=== PATIENT | female | born 1990 | race Caucasian/White ===

== ENCOUNTER 2024-01-31 01:23 | Emergency (ER) | payer SELFPAY ==
--- NOTE | 2024-01-31 02:43 | EDPHYS ---
Physician Documentation [facility] Name: Elizabeth Duke Age: 33 yrs Sex: Female : 1990 Arrival Date: 01/31/2024 Time: 01:23 Bed 17 Private MD: ED Physician Sonam Chin HPI: 01/30 02:21 This 33 yrs old Female presents to ER via Ambulatory with complaints of Psychosis. sp3 02:21 . sp3 02:22 33-year-old female with history of hepatitis and 1 prior psychosis episode with sp3 subsequent Seroquel use and stoppage several years ago now presents again with family for chief complaint psychosis. Patient is talking to people that are not there, making hand gestures and acting generally abnormal per family (parents). Patient states she takes marijuana but does not have any other drug use. She denies any trauma, headache, neck pain, chest pain, shortness of breath, abdominal pain, vomiting, diarrhea, rash, known sick contacts, travel history or any other signs or symptoms on ROS at this time.. 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 - Infectious Disease History:: Denies. - Social history:: Smoking status: Reported history of juuling and/or vaping. Patient uses methamphetamines. ROS: 02:24 Unable to obtain ROS due to patient being uncooperative, sp3 Exam: 02:24 Constitutional: This is a well developed, well nourished patient who is awake, alert, sp3 and in no acute distress. Head/Face: Normocephalic, atraumatic. Eyes: Pupils equal round and reactive to light, extra-ocular motions intact. Lids and lashes normal. Conjunctiva and sclera are non-icteric and not injected. Cornea within normal limits. Periorbital areas with no swelling, redness, or edema. Neck: Trachea midline, no thyromegaly or masses palpated, and no cervical lymphadenopathy. Supple, full range of motion without nuchal rigidity, or vertebral point tenderness. No Meningismus. Chest/axilla: Normal chest wall appearance and motion. Nontender with no deformity. No lesions are appreciated. Cardiovascular: Regular rate and rhythm with a normal S1 and S2. No gallops, murmurs, or rubs. Normal PMI, no JVD. No pulse deficits. Respiratory: Lungs have equal breath sounds bilaterally, clear to auscultation and percussion. No rales, rhonchi or wheezes noted. No increased work of breathing, no retractions or nasal flaring. Abdomen/GI: Soft, non-tender, with normal bowel sounds. No distension or tympany. No guarding or rebound. No evidence of tenderness throughout. Back: No spinal tenderness. No costovertebral tenderness. Full range of motion. MS/ Extremity: Pulses equal, no cyanosis. Neurovascular intact. Full, normal range of motion. Neuro: Awake and alert, GCS 15, oriented to person, place, time, and situation. Cranial nerves II-XII grossly intact. Motor strength 5/5 in all extremities. Sensory grossly intact. Cerebellar exam normal. Normal gait. 02:24 Psych: Patient appears psychotic and responding to internal stimuli. Very pressured speech.. Vital Signs: 01:46 BP 132 / 77; Pulse 88; Resp 18; Pulse Ox 100% on R/A; Pain 0/10; kj2 01:58 Weight 104.33 kg; Height 5 ft. 3 in. ; kj2 01:58 Body Mass Index 40.74 (104.33 kg, 160.02 cm) kj2 01:46 Pain Scale: Adult kj2 MDM: 01:33 Medical Screening Exam initiated sp3 02:25 Data reviewed: vital signs, nurses notes, lab test result(s). ED course: 33-year-old sp3 female with history of psychosis now acutely psychotic. This could be psychotic break versus external substance-induced on differential diagnosis. Will obtain general labs for toxicology and administer Geodon as it is clearly indicated. [facility] will be consulted as needed.. 02:42 ED course: Patient calm and states she wants to leave. At this point I still believe sp3 she is experiencing psychosis but is not a danger to herself. She denies suicidal ideation, homicidal ideation or any other psychiatric pathology. Her vital signs are normal. Although I recommended antipsychotic medication to her she ultimately refuses. I have urged her as well as her parents to talk to her to try and get her to change her mind. She is persistent on not wanting medication and has walked out of the emergency department.. 01/30 01:45 Order name: EKG; Complete Time: 01:45 sp3 01/30 01:45 Order name: Suicide Screening (Tracey); Complete Time: 04:32 sp3 Administered Medications: 02:35 Not Given (Patient Refused): [id number] mg IM once kj2 Disposition Summary: 01/31/24 02:43 Discharge Ordered Notes: Location: Home sp3 Condition: Stable sp3 Diagnosis - Unspecified psychosis not due to a substance or known physiological condition sp3 Followup: sp3 - With: Private Physician - When: Upon discharge from the Emergency Department - Reason: Continuance of care Discharge Instructions: - Discharge Summary Sheet sp3 - Psychosis sp3 Forms: - Medication Reconciliation Form sp3 - Antibiotic Education sp3 - Prescription Opioid Use sp3 - Patient Portal Instructions sp3 - Leadership Thank You Letter sp3 Signatures: Dispatcher [employer] EDSonam Del Rio MD MD sp3 Kim Comer RN RN kj2 Corrections: (The following items were deleted from the chart) 01:45 01:45 ACETAMINOPHEN+C.LAB.BRZ ordered. EDMS EDMS 01:45 01:45 BASIC METABOLIC PANEL+C.LAB.BRZ ordered. EDMS EDMS 01:45 01:45 CBC+H.LAB.BRZ ordered. EDMS EDMS 01:45 01:45 ETHANOL+C.LAB.BRZ ordered. EDMS EDMS 01:45 01:45 HEPATIC FUNCTION+C.LAB.BRZ ordered. EDMS EDMS 01:45 01:45 PROTIME (+INR)+COAG.LAB.BRZ ordered. EDMS EDMS 01:45 01:45 Test, Urine+UC.LAB.BRZ ordered. EDMS EDMS 01:45 01:45 PTT, ACTIVATED+COAG.LAB.BRZ ordered. EDMS EDMS 01:45 01:45 SALICYLATE+C.LAB.BRZ ordered. EDMS EDMS 01:45 01:45 Urinalysis+U.LAB.BRZ ordered. EDMS EDMS 01:45 01:45 URINE DRUG SCREEN+UC.LAB.BRZ ordered. EDMS EDMS
--- NOTE | 2024-01-31 02:43 | ER ---
Nurse's Notes [facility] Name: Elizabeth Duke Age: 33 yrs Sex: Female : 1990 Arrival Date: 01/31/2024 Time: 01:23 Bed 17 Private MD: Diagnosis: Unspecified psychosis not due to a substance or known physiological condition Presentation: 01/30 01:46 Chief complaint: Parent and/or Guardian states: she is talking to aliens. Coronavirus kj2 screen: Client denies travel out of the [place] in the last 14 days. Ebola Screen: No symptoms or risks identified at this time. Initial Sepsis Screen: Does the patient meet any 2 criteria? No. Patient's initial sepsis screen is negative. Does the patient have a suspected source of infection? No. Patient's initial sepsis screen is negative. Risk Assessment: Do you want to hurt yourself or someone else? Patient reports no desire to harm self or others. Onset of symptoms was January 31, 2024. 01:46 Method Of Arrival: Ambulatory kj2 01:46 Acuity: KAJAL 3 kj2 Triage Assessment: 01:45 General: Appears in no apparent distress. Behavior is talking to herself "What is going kj2 on" and singing. 02:06 Pain: Denies pain. 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 - Infectious Disease History:: Denies. - Social history:: Smoking status: Reported history of juuling and/or vaping. Patient uses methamphetamines. Screenin:45 [facility] ED Fall Risk Assessment (Adult) History of falling in the last 3 months, kj2 including since admission No falls in past 3 months (0 pts) Confusion or Disorientation No (0 pts) Intoxicated or Sedated No (0 pts) Impaired Gait No (0 pts) Mobility Assist Device Used No (0 pt) Altered Elimination No (0 pt) Score/Fall Risk Level 0 - 2 = Low Risk Maintained a safe environment, Hourly rounding (assess needs \\T\\ fall precautionary measures) done. Abuse screen: Denies threats or abuse. Denies injuries from another. Nutritional screening: No deficits noted. Tuberculosis screening: No symptoms or risk factors identified. Assessment: 01:45 General: see triage assessment. Neuro: Level of Consciousness is awake, alert, Oriented kj2 to person. 02:15 Reassessment: PROVIDED EDUCATION ON NEED TO CONTINUED WITH PLAN OF CARE. PATIENT DENIES ha1 SUICIDAL IDEATION. 02:33 Reassessment: Patient and/or family updated on plan of care and expected duration. Pain kj2 level reassessed. Patient is alert, oriented x 3, equal unlabored respirations, skin warm/dry/pink. RN and charge nurse attempt educated the patient on the importance of taking meds and providing labs. Pt still refused. 02:41 Reassessment: patient refused all labs and orders. She said she wants to go home, she kj2 denies suicidal ideation. Vital Signs: 01:46 BP 132 / 77; Pulse 88; Resp 18; Pulse Ox 100% on R/A; Pain 0/10; kj2 01:58 Weight 104.33 kg; Height 5 ft. 3 in. ; kj2 01:58 Body Mass Index 40.74 (104.33 kg, 160.02 cm) kj2 01:46 Pain Scale: Adult kj2 ED Course: 01:28 Patient arrived in ED. gm2 01:33 Sonam Chin MD is Attending Physician. sp3 01:38 Kim Comer, LALI is Primary Nurse. kj2 01:45 Patient has correct armband on for positive identification. Bed in low position. Call kj2 light in reach. Adult w/ patient. Provided Education on: call light. 01:56 Triage completed. kj2 02:18 Arm band placed on Patient placed in an exam room, on a stretcher. kj2 02:45 Patient did not have IV access during this emergency room visit. kj2 02:45 No provider procedures requiring assistance completed. kj2 Administered Medications: 02:35 Not Given (Patient Refused): [email or web address] mg IM once kj2 Medication: 02:05 VIS not applicable for this client. kj2 Outcome: 02:43 Discharge ordered by . sp3 02:44 Discharged to home ambulatory, kj2 02:44 Condition: unchanged 02:44 Discharge instructions given to patient, Instructed on follow up and referral plans. Demonstrated understanding of instructions, follow-up care, 02:45 Patient left the ED. kj2 Signatures: Sonam Chin MD MD sp3 Nyla Wilkinson RN RN ha1 Radha Self gm2 Kim Comer RN RN kj2 Corrections: (The following items were deleted from the chart) 04:33 02:15 Reassessment: PROVIDED EDUCATION ON NEED TO CONTINUED WITH PLAN OF CARE ha1 ha1
[2024-01-31 06:13] VITALS: BP 132/77; O2SAT 100
== END 2024-01-31 02:45 | disposition home or self-care (01) ==
LOC: ER 01:23
DX: F29 Unspecified psychosis not due to a substance or known physiological condition (principal)
CPT/HCPCS: 99282